=== PATIENT | male | born 1945 | race Caucasian/White ===

== ENCOUNTER 2018-10-13 11:13 | Emergency (ER) | payer MEDICARE, OTHER ==
--- NOTE | 2018-10-13 12:13 | XRAY Report ---
Reason: dizziness Procedure Date: 10/13/2018 Accession Number: [id number] / [id number] Procedure: XR - Chest 1 View X-Ray CPT Code: 76752 FULL RESULT: EXAM: CHEST RADIOGRAPHY EXAM DATE: 10/13/2018 11:49 AM. CLINICAL HISTORY: Dizziness. COMPARISON: None. TECHNIQUE: 1 view. FINDINGS: Lungs/Pleura: No focal opacities evident. No pleural effusion. No pneumothorax. Mediastinum: Within exam limitations, the cardiomediastinal contour is normal. Other: None. IMPRESSION: No acute cardiopulmonary abnormality. RADIA
[2018-10-13 12:39] LABS: BASOPHILS # (AUTO) 0.1 10^3/uL (0.0-0.1); BASOPHILS % (AUTO) 0.7 %; EOSINOPHILS # (AUTO) 0.2 10^3/uL (0.0-0.7); EOSINOPHILS % (AUTO) 2.8 %; HGB - HEMOGLOBIN 16.4 g/dL (14.0-18.0); LYMPHOCYTES # (AUTO) 1.1 10^3/uL (1.5-3.5); LYMPHOCYTES % (AUTO) 14.3 %; MEAN CORPUSCULAR HEMOGLOBIN 31.1 pg (27.0-31.0); MEAN CORPUSCULAR HGB CONC 32.9 g/dL (32.0-36.0); MEAN CORPUSCULAR VOLUME 94.3 fL (80.0-94.0); MEAN PLATELET VOLUME 9.5 fL (7.4-11.4); MONOCYTES # (AUTO) 0.5 10^3/uL (0.0-1.0); MONOCYTES % (AUTO) 6.1 %; NEUTROPHILS # (AUTO) 5.8 10^3/uL (1.5-6.6); NEUTROPHILS % (AUTO) 76.1 %; PLT - PLATELET COUNT 241 10^3/uL (130-450); RED BLOOD COUNT 5.29 10^6/uL (4.70-6.10); RED CELL DISTRIBUTION WIDTH 13.7 % (12.0-15.0); WHITE BLOOD COUNT 7.7 x10^3/uL (4.8-10.8)
[2018-10-13 12:50] LABS: ALBUMIN 4.2 g/dL (3.2-5.5); ALBUMIN/GLOBULIN RATIO 1.2 (1.0-2.2); BILIRUBIN,TOTAL 0.8 mg/dL (0.2-1.0); CALCIUM 9.5 mg/dL (8.5-10.3); CREATININE 1.3 mg/dL (0.6-1.2); TOTAL PROTEIN 7.7 g/dL (6.7-8.2)
[2018-10-13] MEDS ORDERED: SODIUM CHLORIDE 0.9% 1,000 ML IV ONE ×2 (14:19)
--- NOTE | 2018-10-13 14:22 | ED Physician Documentation ---
History of Present Illness - Stated complaint Stated Complaint: DIZZY/BLURRY VISION/NAUSEA - Chief complaint Chief Complaint: Neuro - History obtained from History obtained from: Patient, Family - History of Present Illness Timing: How many days ago (3) - Additonal information Additional information: 73-year-old male has been feeling ill for the past 3 days with dizziness and lightheadedness when he goes to stand up. He is even noticed some blurring of his vision and some slurring of his speech associated with this. He usually drinks coffee and no water. He indicates that about 4 days ago he had a lot of salt when he ate the last of a box of Cheese-its -- the salty powder and then he had [place] and then went out to dinner. He reports that his usual intake of fluids is coffee and a little or no water. Review of Systems Constitutional: reports: Fatigue. denies: Fever Eyes: denies: Decreased vision Ears: denies: Ear pain Nose: denies: Rhinorrhea / runny nose, Congestion Throat: denies: Sore throat Cardiac: denies: Chest pain / pressure, Palpitations Respiratory: denies: Dyspnea, Cough GI: denies: Abdominal Pain, Nausea, Vomiting : denies: Dysuria, Frequency Skin: denies: Rash Musculoskeletal: denies: Neck pain, Back pain, Extremity pain Neurologic: reports: Generalized weakness, Difficulty speaking. denies: Focal weakness, Numbness PD PAST MEDICAL HISTORY - Allergies Allergies/Adverse Reactions: Allergies Allergy/AdvReac Type Severity Reaction Status Date / Time No Known Drug Allergies Allergy Verified 10/13/18 11:29 PD ED PE NORMAL - Vitals Vital signs reviewed: Yes (hypertensive) - General General: Alert and oriented X 3, No acute distress, Well developed/nourished - HEENT HEENT: Atraumatic, PERRL, EOMI, Ears normal, Other (dry mucous membranes ) - Neck Neck: Supple, no meningeal sign, No bony TTP - Cardiac Cardiac: RRR, No murmur - Respiratory Respiratory: No respiratory distress, Clear bilaterally - Abdomen Abdomen: Soft, Non tender - Back Back: No CVA TTP, No spinal TTP - Derm Derm: Normal color, Warm and dry, No rash - Extremities Extremities: No deformity, No edema - Neuro Neuro: Alert and oriented X 3, 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, No motor deficit, No sensory deficit, Normal speech Eye Opening: Spontaneous Motor: Obeys Commands Verbal: Oriented GCS Score: 15 - Psych Psych: Normal mood, Normal affect Results - Vitals Vitals: Vital Signs - 24 hr 10/13/18 10/13/18 10/13/18 11:25 14:01 16:00 Temperature 36.5 C Heart Rate 79 73 96 Respiratory 16 15 25 H Rate Blood Pressure 174/106 H 154/97 H 155/90 H O2 Saturation 96 97 93 10/13/18 16:38 Temperature Heart Rate 72 Respiratory 17 Rate Blood Pressure 156/90 H O2 Saturation 97 Oxygen O2 Source Room air - Labs Labs: Laboratory Tests 10/13/18 10/13/18 10/13/18 12:31 12:31 12:31 WBC 7.7 RBC 5.29 Hgb 16.4 Hct 49.9 MCV 94.3 H MCH 31.1 H MCHC 32.9 RDW 13.7 Plt Count 241 MPV 9.5 Neut # (Auto) 5.8 Lymph # (Auto) 1.1 L Robeson # (Auto) 0.5 Eos # (Auto) 0.2 Baso # (Auto) 0.1 Absolute Nucleated RBC 0.00 Nucleated RBC % 0.0 Sodium 135 Potassium 4.3 Chloride 99 L Carbon Dioxide 25 Anion Gap 11.0 BUN 23 H Creatinine 1.3 H Estimated GFR (MDRD) 54 L Glucose 132 H Calcium 9.5 Total Bilirubin 0.8 AST 23 ALT 21 Alkaline Phosphatase 72 Troponin I 0.04 Total Protein 7.7 Albumin 4.2 Globulin 3.5 Albumin/Globulin Ratio 1.2 Lipase 38 Urine Color Urine Clarity Urine pH Ur Specific [place] Urine Protein Urine Glucose (UA) Urine Ketones Urine Occult Blood Urine Nitrite Urine Bilirubin Urine Urobilinogen Ur Leukocyte Esterase Ur Microscopic Review Urine Culture Comments 10/13/18 16:10 WBC RBC Hgb Hct MCV MCH MCHC RDW Plt Count MPV Neut # (Auto) Lymph # (Auto) Robeson # (Auto) Eos # (Auto) Baso # (Auto) Absolute Nucleated RBC Nucleated RBC % Sodium Potassium Chloride Carbon Dioxide Anion Gap BUN Creatinine Estimated GFR (MDRD) Glucose Calcium Total Bilirubin AST ALT Alkaline Phosphatase Troponin I Total Protein Albumin Globulin Albumin/Globulin Ratio Lipase Urine Color YELLOW Urine Clarity CLEAR Urine pH 6.5 Ur Specific [place] <=1.005 Urine Protein NEGATIVE Urine Glucose (UA) NEGATIVE Urine Ketones NEGATIVE Urine Occult Blood NEGATIVE Urine Nitrite NEGATIVE Urine Bilirubin NEGATIVE Urine Urobilinogen 0.2 (NORMAL) Ur Leukocyte Esterase NEGATIVE Ur Microscopic Review NOT INDICATED Urine Culture Comments NOT INDICATED Procedures - IVC sono (time) 1415 Bedside IVC sono: IVC measures (cm) (0.69), IVC collapsed c insp (cm) ( complete), Significant dehydration (sest 3 liter deficit.) PD MEDICAL DECISION MAKING - ED course Complexity details: reviewed old records, reviewed results, re-evaluated patient, considered differential, d/w patient, d/w family ED course: 73-year-old male with lightheadedness and dizziness with slurred speech and blurred vision is significantly dehydrated on interrogation the inferior vena cava and IV saline is administered. He has marked improvement after 2 liters administered. Departure - Departure Disposition: 01 Home, Self Care Clinical Impression: Dehydration Condition: Stable Instructions: ED Dehydration Follow-Up: [facility] [Provider Group] Discharge Date/Time: 10/13/18 16:38
[2018-10-13 16:21] LABS: BILIRUBIN,URINE NEGATIVE (NEGATIVE); GLUCOSE, URINE (UA) NEGATIVE (NEGATIVE); KETONES,URINE (UA) NEGATIVE (NEGATIVE); LEUKOCYTE ESTERASE, URINE NEGATIVE (NEGATIVE); NITRITE,URINE NEGATIVE (NEGATIVE); OCCULT BLOOD,URINE NEGATIVE (NEGATIVE); PH,URINE 6.5 PH (5.0-7.5); PROTEIN,URINE NEGATIVE (NEGATIVE); UROBILINOGEN,URINE 0.2 (NORMAL) E.U./dL (NORMAL)
[2018-10-13 16:39] VITALS: BP 156/90
[2018-10-13 16:51] LABS: CLARITY,URINE CLEAR (CLEAR)
== END 2018-10-13 16:38 | disposition home or self-care (01) ==
LOC: ED 11:13
DX: E86.0 Dehydration (principal)
CPT/HCPCS: 36415; 71045; 80053; 81001; 81003; 83690; 84484; 85025; 87086; 93005; 96360; 99283

== ENCOUNTER 2018-10-15 11:08 | Emergency (ER) | payer MEDICARE, OTHER ==
[2018-10-15] MEDS ORDERED: SODIUM CHLORIDE 0.9% 1,000 ML IV ONE ×2 (11:40→13:14)
[2018-10-15 11:48] LABS: BASOPHILS # (AUTO) 0.1 10^3/uL (0.0-0.1); BASOPHILS % (AUTO) 0.8 %; EOSINOPHILS # (AUTO) 0.4 10^3/uL (0.0-0.7); EOSINOPHILS % (AUTO) 4.5 %; HGB - HEMOGLOBIN 15.3 g/dL (14.0-18.0); LYMPHOCYTES # (AUTO) 1.4 10^3/uL (1.5-3.5); LYMPHOCYTES % (AUTO) 17.6 %; MEAN CORPUSCULAR HEMOGLOBIN 31.3 pg (27.0-31.0); MEAN CORPUSCULAR HGB CONC 33.3 g/dL (32.0-36.0); MEAN CORPUSCULAR VOLUME 94.1 fL (80.0-94.0); MONOCYTES # (AUTO) 0.8 10^3/uL (0.0-1.0); MONOCYTES % (AUTO) 9.6 %; NEUTROPHILS # (AUTO) 5.5 10^3/uL (1.5-6.6); NEUTROPHILS % (AUTO) 67.5 %; PLT - PLATELET COUNT 232 10^3/uL (130-450); RED CELL DISTRIBUTION WIDTH 13.5 % (12.0-15.0); WHITE BLOOD COUNT 8.2 x10^3/uL (4.8-10.8)
--- NOTE | 2018-10-15 11:54 | ED Physician Documentation ---
History of Present Illness - Stated complaint Stated Complaint: DIZZINESS - Chief complaint Chief Complaint: General - History obtained from History obtained from: Patient, Family - History of Present Illness Timing: How many days ago (5) - Additonal information Additional information: 73-year-old male who developed dizziness and ataxia 5 days ago was hydrated in the emergency department 3 days ago felt improved and today he was out walking on [place] when he again noted symptoms of severe ataxia and has come to the emergency department. He feels that he has some slurring to his speech and dizziness especially with any head movement. Review of Systems Constitutional: reports: Fatigue. denies: Fever, Chills, Myalgias Eyes: denies: Decreased vision Ears: denies: Ear pain Nose: denies: Rhinorrhea / runny nose, Congestion Throat: denies: Sore throat Cardiac: denies: Chest pain / pressure, Palpitations Respiratory: reports: Cough. denies: Dyspnea GI: denies: Abdominal Pain, Nausea, Vomiting : reports: Frequency. denies: Dysuria Skin: denies: Rash Musculoskeletal: denies: Neck pain, Back pain, Extremity pain PD PAST MEDICAL HISTORY - Past Medical History Cardiovascular: Hypertension - Past Surgical History Past Surgical History: No - Present Medications Home Medications: Ambulatory Orders Medication Instructions Recorded Confirmed Azithromycin [Zithromax] 250 mg PO DAILY #6 tablet 10/15/18 Meclizine HCl 25 mg PO Q6HR PRN #20 tab.chew 10/15/18 - Allergies Allergies/Adverse Reactions: Allergies Allergy/AdvReac Type Severity Reaction Status Date / Time No Known Drug Allergies Allergy Verified 10/15/18 11:16 - Social History Does the pt smoke?: No Smoking Status: Never smoker Does the pt drink ETOH?: Yes Does the pt have substance abuse?: No - Immunizations Immunizations are current?: Yes - POLST Patient has POLST: No PD ED PE NORMAL - Vitals Vital signs reviewed: Yes (hypertensive ) - General General: Alert and oriented X 3, No acute distress, Well developed/nourished, Other (There is some dysarthric speech and a slight hesitation in execution of motor commnads. There is a flat affect ) - HEENT HEENT: Atraumatic, PERRL, EOMI, Other (inflamaiton to the left TM is mild along the umbo which is flattened slightly There are 2-3 beats of nystagmus bilaterally ) - Neck Neck: Supple, no meningeal sign - Cardiac Cardiac: RRR, No murmur - Respiratory Respiratory: No respiratory distress, Clear bilaterally - Abdomen Abdomen: Soft, Non tender - Back Back: No CVA TTP, No spinal TTP - Derm Derm: Normal color, Warm and dry, No rash - Extremities Extremities: No deformity, No edema - Neuro Neuro: Alert and oriented X 3, senior consultant 2-12 intact, No motor deficit, No sensory deficit, Other (speech is dysarthric mildly ) Eye Opening: Spontaneous Motor: Obeys Commands Verbal: Oriented GCS Score: 15 - Psych Psych: Normal mood, Other (affect is flat) Results - Vitals Vitals: Vital Signs - 24 hr 10/15/18 10/15/18 10/15/18 11:13 12:25 12:30 Temperature 36.7 C Heart Rate 87 71 72 Respiratory 14 14 15 Rate Blood Pressure 148/88 H 159/93 H 161/93 H O2 Saturation 98 97 96 10/15/18 10/15/18 10/15/18 13:00 13:30 15:14 Temperature 36.5 C 36.7 C Heart Rate 73 73 81 Respiratory 16 14 15 Rate Blood Pressure 153/87 H 158/93 H O2 Saturation 96 96 97 10/15/18 15:46 Temperature Heart Rate 74 Respiratory 14 Rate Blood Pressure 164/105 H O2 Saturation 95 Oxygen O2 Source Room air - EKG (time done) 1205 Rate: Rate (enter#) (76) Rhythm: LAE QRS: Low voltage Ischemia: Q waves Compare to prior EKG: Unchanged from prior EKG (SPT 10-13-18 no changes) Computer interpretation: Agree with computer - Labs Labs: Laboratory Tests 10/15/18 10/15/18 10/15/18 11:38 12:05 12:06 WBC 8.2 RBC 4.90 Hgb 15.3 Hct 46.1 MCV 94.1 H MCH 31.3 H MCHC 33.3 RDW 13.5 Plt Count 232 MPV 10.0 Neut # (Auto) 5.5 Lymph # (Auto) 1.4 L Hunt # (Auto) 0.8 Eos # (Auto) 0.4 Baso # (Auto) 0.1 Absolute Nucleated RBC 0.00 Nucleated RBC % 0.1 Sodium 136 Potassium 4.4 Chloride 102 Carbon Dioxide 25 Anion Gap 9.0 BUN 18 Creatinine 1.3 H Estimated GFR (MDRD) 54 L Glucose 85 Calcium 9.7 Total Bilirubin 0.8 AST 21 ALT 19 Alkaline Phosphatase 62 Troponin I < 0.04 Total Protein 7.2 Albumin 4.0 Globulin 3.2 Albumin/Globulin Ratio 1.3 Lipase 40 Urine Color Urine Clarity Urine pH Ur Specific [place] Urine Protein Urine Glucose (UA) Urine Ketones Urine Occult Blood Urine Nitrite Urine Bilirubin Urine Urobilinogen Ur Leukocyte Esterase Ur Microscopic Review Urine Culture Comments 10/15/18 12:30 WBC RBC Hgb Hct MCV MCH MCHC RDW Plt Count MPV Neut # (Auto) Lymph # (Auto) Hunt # (Auto) Eos # (Auto) Baso # (Auto) Absolute Nucleated RBC Nucleated RBC % Sodium Potassium Chloride Carbon Dioxide Anion Gap BUN Creatinine Estimated GFR (MDRD) Glucose Calcium Total Bilirubin AST ALT Alkaline Phosphatase Troponin I Total Protein Albumin Globulin Albumin/Globulin Ratio Lipase Urine Color YELLOW Urine Clarity CLEAR Urine pH 6.5 Ur Specific [place] <=1.005 Urine Protein NEGATIVE Urine Glucose (UA) NEGATIVE Urine Ketones NEGATIVE Urine Occult Blood NEGATIVE Urine Nitrite NEGATIVE Urine Bilirubin NEGATIVE Urine Urobilinogen 0.2 (NORMAL) Ur Leukocyte Esterase NEGATIVE Ur Microscopic Review NOT INDICATED Urine Culture Comments NOT INDICATED - Rads (name of study) CT head without Radiology: Prelim report reviewed (Impression: Mild senescent changes without evidence of acute intracranial abnormality.), EMP read indepedently, See rad report Procedures - IVC sono (time) 1145 Bedside IVC sono: IVC measures (cm) (0.93), IVC collapsed c insp (cm) (complete), Dehydration (est 2 liter deficit) PD MEDICAL DECISION MAKING - ED course Complexity details: reviewed old records, reviewed results, re-evaluated patient, considered differential, d/w patient, d/w family ED course: 73-year-old male with a recent admission to the emergency department for fatigue and near syncope was found to be significantly dehydrated on interrogation the inferior vena cava and the rest of the clinical course supported this diagnosis. He was hydrated with 2 L of normal saline and improved. He had an estimated deficit of 3 L at the time. He had been drinking excessive amounts of coffee and was suspected that this was a cause of his level of dehydration with a caffeine acting as diuretic. Today he is return to the emergency department and again has slurred speech and a dysarthric fashion from dry mucous membranes and he is unsteady on his feet. Today again his inferior vena cava is interrogated he is found to be dehydrated this time an estimate of 2 L. He is administered normal saline 2 L. Again he has improvement in his admitting symptoms. On examination today he does have otitis on the left side and he has been having cough and congestion for the past 2 months. He has had undulating symptoms. He is treated today for this with Rocephin intravenously. We will place him on outpatient antibiotic orally. Today we did do CT scan of the head with concern for atypical stroke and we found no abnormalities on this. He had no lateralizing symptoms on examination.At the conclusion of 2 L of saline the patient was road tested and performed poorly. He complained of dizziness with movement and was ataxic in his gait. He returned to his bed he did at that point have 2-3 beats of nystagmus and he was administered meclizine 25 mg orally. Within 40 minutes of administration of the meclizine the patient was road tested again after performing the Nikole maneuver. The patient had no nystagmus while performing the Nikole maneuver and he felt no dizziness prior to performing it. He felt improved after taking the medication and he was road tested again and performed well. He feels comfortable going home with a prescription for meclizine. Departure - Departure Disposition: 01 Home, Self Care Clinical Impression: Dehydration Otitis media Qualifiers: Otitis media type: suppurative Chronicity: acute Laterality: left Recurrence: non-recurrent Spontaneous tympanic membrane rupture: without spontaneous rupture Qualified Code(s): H66.002 - Acute suppurative otitis media without spontaneous rupture of ear drum, left ear Labyrinthitis Qualifiers: Laterality: unspecified laterality Qualified Code(s): H83.09 - Labyrinthitis, u nspecified ear Condition: Stable Instructions: ED Dehydration, ED Otitis Media Acute Adult, ED Labyrinthitis Follow-Up: [facility] [Provider Group] Prescriptions: Meclizine HCl 25 mg PO Q6HR PRN #20 tab.chew PRN Reason: Dizziness Azithromycin [Zithromax] 250 mg PO DAILY #6 tablet
[2018-10-15 12:22] LABS: ALBUMIN/GLOBULIN RATIO 1.3 (1.0-2.2); BILIRUBIN,TOTAL 0.8 mg/dL (0.2-1.0); CALCIUM 9.7 mg/dL (8.5-10.3); CREATININE 1.3 mg/dL (0.6-1.2); TOTAL PROTEIN 7.2 g/dL (6.7-8.2)
[2018-10-15] MEDS ORDERED: cefTRIAXone 1 GM in SODIUM CHLORIDE 0.9% MINIBAG 100 ML IV STA (12:31)
[2018-10-15 12:36] LABS: BILIRUBIN,URINE NEGATIVE (NEGATIVE); GLUCOSE, URINE (UA) NEGATIVE (NEGATIVE); KETONES,URINE (UA) NEGATIVE (NEGATIVE); LEUKOCYTE ESTERASE, URINE NEGATIVE (NEGATIVE); NITRITE,URINE NEGATIVE (NEGATIVE); OCCULT BLOOD,URINE NEGATIVE (NEGATIVE); PH,URINE 6.5 PH (5.0-7.5); PROTEIN,URINE NEGATIVE (NEGATIVE); UROBILINOGEN,URINE 0.2 (NORMAL) E.U./dL (NORMAL)
[2018-10-15 12:38] LABS: CLARITY,URINE CLEAR (CLEAR)
--- NOTE | 2018-10-15 12:56 | CT Report ---
Reason: dizziness and ataxia Procedure Date: 10/15/2018 Accession Number: [id number] / [id number] Procedure: CT - HEAD WO CPT Code: FULL RESULT: EXAM: CT HEAD EXAM DATE: 10/15/2018 11:55 AM. CLINICAL HISTORY: Dizziness and ataxia. COMPARISON: None. TECHNIQUE: Multiaxial CT images were obtained from the foramen magnum to the vertex. Reformats: Sagittal and coronal. IV contrast: None. In accordance with CT protocol optimization, one or more of the following dose reduction techniques were utilized for this exam: automated exposure control, adjustment of mA and/or KV based on patient size, or use of iterative reconstructive technique. FINDINGS: Parenchyma: No intraparenchymal hemorrhage. No evidence of mass, midline shift or CT findings of acute infarction. Quiroga-white differentiation is distinct. Diffuse mild chronic microangiopathic white matter changes are evident. Extraaxial Spaces: Normal for age. No subdural or epidural collections identified. Ventricles: The ventricles and cortical sulci are enlarged, consistent with age-related tissue loss. Sinuses: Imaged paranasal sinuses, orbits, and mastoids show no significant abnormality. Bones: No evidence of fracture or calvarial defect. Other: None. IMPRESSION: Mild senescent changes without evidence of acute intracranial abnormality. RADIA
[2018-10-15] MEDS ORDERED: MECLIZINE 12.5 MG TABLET PO STA (15:15)
[2018-10-15 15:47] VITALS: BP 164/105
== END 2018-10-15 16:28 | disposition home or self-care (01) ==
LOC: ED 11:08
DX: E86.0 Dehydration (principal); H66.002 Acute suppurative otitis media without spontaneous rupture of ear drum, left ear; H83.09 Labyrinthitis, unspecified ear; R26.0 Ataxic gait; R05 Cough; I10 Essential (primary) hypertension
CPT/HCPCS: 36415; 70450; 80053; 81003; 83690; 84484; 85025; 93005; 96361; 96365; 99284; A9270; 81001; 87086

== ENCOUNTER 2018-12-13 08:14 | Outpatient (CLI) | payer MEDICARE, OTHER ==
--- NOTE | 2018-12-13 14:24 | Ultrasound Report ---
Reason: ENCOUNTER FOR SCREENING FOR CARDIOVASCULAR DISORDE Procedure Date: 12/13/2018 Accession Number: [id number] / [id number] Procedure: US - Aorta Screening CPT Code: FULL RESULT: EXAM: AORTIC DOPPLER ULTRASOUND EXAM DATE: 12/13/2018 08:41 AM. CLINICAL HISTORY: ENCOUNTER FOR SCREENING FOR CARDIOVASCULAR DISORDER. COMPARISON: None. TECHNIQUE: Real-time sonographic imaging of retroperitoneal vascular structures, including color-flow, Doppler flow and spectral analysis was performed by the director microbiology. Multiple field representative static images were saved for review. FINDINGS: Aorta: The abdominal aorta was adequately visualized. No evidence for abdominal aortic aneurysm. Mild atherosclerotic plaque formation is seen primarily in the mid abdominal aorta. Aorta: Proximal: Sagittal AP: 2.4 x 2.6 cm. Mid: Transverse: 2.2 x 2.2 cm. Distal: Transverse: 1.6 x 1.9 cm. Caliber WNL: Yes. Plaque visualized: Yes. Iliacs: Right Iliac: Transverse: 1.5 x 1.4 cm. Left Iliac: Transverse: 1.4 x 1.5 cm. Iliac Vessels: The visualized proximal common iliac arteries are normal in caliber. Other: None. IMPRESSION: No abdominal aortic aneurysm demonstrated. RADIA
== END 2018-12-13 08:15 | disposition home or self-care (01) ==
LOC: DI 08:14
PROVIDERS: ATTEND Internal Medicine
DX: Z13.6 Encounter for screening for cardiovascular disorders (principal)
CPT/HCPCS: 76706